=== PATIENT | male | born 1980 | race Hispanic/Latino ===

== ENCOUNTER 2020-07-03 12:48 | Emergency (ER) | payer OTHER ==
[~2020-07-03] VITALS: Ht 170.2 cm; Wt 111.1 kg
[2020-07-03] MEDS ORDERED: LYRICA150 MG PO (13:22)
[2020-07-03] MEDS ORDERED: BACLOFEN10 MG PO (13:22)
[2020-07-03] MEDS ORDERED: BACTRIM DS TAB1 EACH PO ×2 (13:22→16:22)
[2020-07-03] MEDS ORDERED: SODIUM CHLORIDE 0.9% 1000ML 1,000 ML IV STA (13:31)
[2020-07-03] MEDS ORDERED: ONDANSETRON HCL INJ 2MG/ML 2ML 2 MG/ML VIAL IV STA (13:31)
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
[2020-07-03] MEDS ORDERED: SODIUM CHLORIDE FLUSH 10 ML SYR INJ PRN (13:45)
[2020-07-03] MEDS ORDERED: MORPHINE SULFATE 5 MG/ML VIAL IV ONE (13:45)
[2020-07-03] MEDS ORDERED: SODIUM CHLORIDE 0.9% 50ML 50 ML ONE (13:49)
[2020-07-03] MEDS ORDERED: IOPAMIDOL 370 MG/ML 200 ML INFUS..BTL INJ ONE (13:50)
[2020-07-03] MEDS ORDERED: MORPHINE SULFATE INJ 4 MG/ML INJ 1ML ONE (13:51)
[2020-07-03] MEDS ORDERED: SODIUM CHLORIDE 0.9% 1000ML 1,000 ML ONE (13:51)
[2020-07-03] MEDS ORDERED: MORPHINE SULFATE INJ 4 MG/ML INJ 1ML IV ONE (14:00)
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
--- NOTE | 2020-07-03 14:47 | Diagnostic Imaging Report ---
CT BRAIN [facility] HISTORY: Headache COMPARISON: None. TECHNIQUE: Noncontrast axial scans were obtained from skull base to the vertex. Coronal and sagittal reconstructions obtained from the axial data. One or more of the following dose reduction techniques were used: Automated exposure control, adjustment of the mA and/or kV according to patient size, and/or utilization of iterative reconstruction technique. DISCUSSION: Scalp/Skull: Possible small posterior parietal scalp hematoma. No calvarial fracture. Brain sulci: Appropriate for patient's age. Ventricles: Normal in size and configuration. No hydrocephalus. Extra-axial spaces: No masses or fluid collections. Parenchyma: No abnormal densities. No mass, hemorrhage, or large vascular territory acute infarct. Dural sinuses: No abnormal densities. Sellar/Suprasellar region: Intact. Skull base: Intact. Incidental findings: None. IMPRESSION: No intracranial abnormalities. Signed by: Dr. Elijah Barkley M.D. on 07/03/2020 2:44 PM
--- NOTE | 2020-07-03 14:56 | Diagnostic Imaging Report ---
ADDENDUM #1 ADDENDUM: A well-circumscribed 2.4 cm likely pleural-based lesion at the left lung base is indeterminate. There are left basilar pleural hyperdensities, likely calcifications, which may be seen in the setting of prior asbestos exposure, or alternatively may represent postsurgical changes. Recommend follow-up nonemergent chest CT for further evaluation. The above findings were discussed with Dr. Nathanael Forde who indicated that the findings were understood on 07-03-2020 at 1505. Signed by: Dr. Jacob Quinonez MD on 07/03/2020 3:06 PM ORIGINAL REPORT EXAM: CT Abdomen and Pelvis WITH contrast INDICATION: Constipation. COMPARISON: None. TECHNIQUE: Abdomen and pelvis were scanned utilizing a multidetector helical scanner from the lung base to the pubic symphysis after administration of IV contrast. Coronal and sagittal reformations were obtained. Routine protocol was performed. Scan was performed when during portal venous phase. IV CONTRAST: 150 mL of Omnipaque 300 ORAL CONTRAST: Water COMPLICATIONS: None RADIATION DOSE: Total DLP: 793 mGy*cm Estimated effective dose: (DLP x 0.015 x size factor) mSv CTDIvol has been reviewed. It is below the limits set by the Radiation Protocol Committee (RPC). FINDINGS: LINES and TUBES: None. LOWER THORAX: There is a 2.4 cm well-circumscribed somewhat hyperdense likely pleural-based lesion in the left lower lung on series 2, image 12. Mild linear subsegmental atelectasis at the left lung base. HEPATOBILIARY: No evidence of focal lesion. No biliary ductal dilation. GALLBLADDER: No radio-opaque stones or sludge. No wall thickening. SPLEEN: No splenomegaly. PANCREAS: No focal masses or ductal dilatation. ADRENALS: No adrenal nodules KIDNEYS/URETERS: Kidneys enhance symmetrically. No evidence of hydronephrosis, solid mass, or stone. Mild right renal cortical scarring. GI TRACT: Moderate amount of stool in the colon. No evidence of wall thickening or distension. Appendix is normal. PELVIC ORGANS/BLADDER: The bladder is partially decompressed and appears circumferentially thick-walled with surrounding inflammatory changes. LYMPH NODES: No lymphadenopathy. VESSELS: Unremarkable. PERITONEUM / RETROPERITONEUM: No free air. Trace amount of free fluid in the pelvis. Peripherally calcified somewhat linear structure in the anterior abdominal fat may be postsurgical or posttraumatic. BONES AND SOFT TISSUES: Partially seen lower thoracic spine fixation hardware. CONCLUSION: Bladder wall thickening with surrounding inflammatory changes, compatible with cystitis in the proper clinical setting. Recommend correlation with urinalysis. Moderate amount of stool in the colon. Peripherally calcified somewhat linear structure in the anterior abdominal fat may be postsurgical or posttraumatic. Recommend clinical correlation. Signed by: Dr. Jacob Quinonez MD on 07/03/2020 2:53 PM
[2020-07-03] MEDS ORDERED: CEFTRIAXONE SOD 1 GM/NS 50 ML 50 ML IV ONE ×2 (16:17→17:15)
[2020-07-03] MEDS ORDERED: FLEET ENEMA133 ML PR (16:22)
[2020-07-03] MEDS ORDERED: PREDNISONE20 MG PO (16:22)
[2020-07-03] MEDS ORDERED: MAGNESIUM CITR296 ML PO (16:22)
[2020-07-03] MEDS ORDERED: CIPRO500 MG PO (16:49)
[2020-07-03 17:03] VITALS: BP 100/53
== END 2020-07-03 17:01 | disposition home or self-care (01) ==
LOC: FSED 12:48
DX: R51 Headache (principal); N30.90 Cystitis, unspecified without hematuria; K59.00 Constipation, unspecified; R10.84 Generalized abdominal pain; G82.20 Paraplegia, unspecified
CPT/HCPCS: 70450; 74177; 80053; 80076; 81003; 82553; 84484; 85025; 87086; 87186; 96374; 96375; 99284

== ENCOUNTER 2020-07-18 21:32 | Emergency (ER) | payer OTHER ==
[~2020-07-18] VITALS: Ht 170.2 cm; Wt 111.1 kg
[~2020-07-18 21:32] MED LIST: BACLOFEN10 MG PO; BACTRIM DS TAB1 EACH PO; CIPRO500 MG PO; FLEET ENEMA133 ML PR; LYRICA150 MG PO; MAGNESIUM CITR296 ML PO; PREDNISONE20 MG PO
[2020-07-18] MEDS ORDERED: MORPHINE SULFATE 2 MG/ML SYR 1ML IV STA (21:53)
[2020-07-18] MEDS ORDERED: ONDANSETRON HCL INJ 2MG/ML 2ML 2 MG/ML VIAL IV STA (21:53)
--- OUTSIDE RECORDS SUMMARY | 2020-07-18 22:03 | XMS REPORT | Continuity of Care Document ---
Author Author [facility] t Organization [facility] Address [address] [place] [address] Phone Unavailable Care Team Providers Care Rn Lab Name Role Phone NONSTAFF PCP Unavailable Keyla SMITH Attphys Unavailable Francisco Javier Tesfaye DO Attphys Payers Payer Name Policy Type Policy Number Effective Date Expiration Date [facility] [id number] 2019 00:00 :00 [facility] Problems Condition Name Condition Details Condition Category Status Onset Date Resolution Date Last Treatment Date Treating Clinician Comments Source Headache Problem Active [facility] Cystitis Problem Active [facility] Constipation Problem Active [facility] Allergies, Adverse Reactions, Alerts This patient has no known allergies or adverse reactions. Social History Social Habit Start Date Stop Date Quantity Comments Source Sex Assigned At 1980 00:00:00 1980 00:00:00 Male [facility] Medications Ordered Medication Name Filled Medication Name Start Date Stop Da te Current Medication? Ordering Clinician Indication Dosage Frequency Signature (SIG) Comments Components Source Ciprofloxacin Hcl (Cipro) 500 Mg TABLET Ciprofloxacin Hcl (C ipro) 500 Mg TABLET 2020-07-03 16:49:00 Yes 500 Every 12 Hours [facility] Magnesium Citrate Magnesium Citrate 2020-07-03 16:22:00 Yes 300 Daily as needed for Constipation [facility] Na Phos,M-B/Na Phos,Di-Ba (Fleet Enema) 133 Ml ENEMA N a Phos,M-B/Na Phos,Di-Ba (Fleet Enema) 133 Ml ENEMA 2020-07-03 16:22:00 Yes 1 32 Every 12 Hours as needed for Constipation [facility] Prednisone Prednisone 2020-07-03 16:22:00 Yes 60 Daily as needed for Moderate Pain (4-6) [facility] Sulfamethoxazole/Trimethoprim (Bactrim Ds Tablet) 1 Ea ch TABLET Sulfamethoxazole/Trimethoprim (Bactrim Ds Tablet) 1 Each TABLET 2020-07-03 16:22:00 Yes 1 Every 12 Hours [facility] Baclofen Baclofen Yes 20 Daily [facility] Pregabalin (Lyrica) 150 Mg CAPSULE Pregabalin (Lyrica) 150 Mg CAPSULE Yes 150 Twice A Day [facility] Sulfamethoxazole/Trimethoprim (Bactrim Ds Tablet) 1 Ea ch TABLET Sulfamethoxazole/Trimethoprim (Bactrim Ds Tablet) 1 Each TABLET Yes 1 Daily [facility] Vital Signs Vital Name Observation Time Observation Value Comments Source Weight 2020-07-03 12:57:00 245 [lb_av] [facility] BMI (Body Mass Index) 2020-07-03 12:57:00 38.4 kg/m2 [facility] Procedures This patient has no known procedures. Plan of Care Planned Activity Planned Date Details Comments Source Instructions Constipation - Adult [facility] Instructions Dehydration - Adult [facility] Instructions Headache [facility] Instructions Urinary Tract Infection - Men [facility] Encounters Start Date/Time End Date/Time Encounter Type Admission Type [facility] Facility Care Department Encounter ID Source 2020-07-03 12:48:00 2020-07-03 17:01:00 Departed Emergency Room 1 NATHANAEL SMITH [facility] [id number] [facility] 2020-06-11 10:39:53 2020-06-11 10:59:53 Office Visit Jean Claude Lowery [facility] [id number] Results Test Description Test Time Test Comments Results Result Comments Source CT ABD/PEL WITH CONTRAST-HOPD 2020-07-03 14:46:[address] [address] Patient Name: TOMA SALDANA MR #: [id number] : 1980 Age/Sex: 40/M Req #: [id number] Adm Physician: Ordered by: NATHANAEL SMITH Report #: [id number] Location: [facility] Room/Bed: Procedure: [id number] HOPD/CT ABD/PEL WITH CONTRAST-HOPD Exam Date: Exam Time: REPORT STATUS: Signed ADDENDUM #1 ADDENDUM: A well-circumscribed 2.4 cm likely pleural-based lesion at the left lung base is indeterminate. There are left basilar pleural hyperdensities, likely calcifications, which may be seen in the setting of prior asbestos exposure, or alternatively may represent postsurgical changes. Recommend follow-up nonemergent chest CT for further evaluation. The above findings were discussed with Dr. Nathanael Smith who indicated that the findings were understood on 07-03-2020 at 1505. Signed by: Dr. Jameel Wilson MD on 07/03/2020 3:06 PM ORIGINAL REPORT EXAM: CT Abdomen and Pelvis WITH contrast INDICATION: Constipation. COMPARISON: None. TECHNIQUE: Abdomen and pelvis were scanned utilizing a multidetector helical scanner from the lung base to the pubic symphysis after administration of IV contrast. Coronal and sagittal reformations were obtained. Routine protocol was performed. Scan was performed when during portal venous phase. IV CONTRAST: 150 mL of Omnipaque 300 ORAL CONTRAST: Water COMPLICATIONS: None RADIATION DOSE: Total DLP: 793 mGy*cm Estimated effective dose: (DLP x 0.015 x size factor) mSv CTDIvol has been reviewed. It is below the limits set by the Radiation Protocol Committee (RPC). FINDINGS: LINES and TUBES: None. LOWER THORAX: There is a 2.4 cm well-circumscribed somewhat hyperdense likely pleural-based lesion in the left lower lung on series 2, image 12. Mild linear subsegmental atelectasis at the left lung base. HEPATOBILIARY: No evidence of focal lesion. No biliary ductal dilation. GALLBLADDER: No radio-opaque stones or sludge. No wall thickening. SPLEEN: No splenomegaly. PANCREAS: No focal masses or ductal dilatation. ADRENALS: No adrenal nodules KIDNEYS/URETERS: Kidneys enhance symmetrically. No evidence of hydronephrosis, solid mass, or stone. Mild right renal cortical scarring. GI TRACT: Moderate amount of stool in the colon. No evidence of wall thickening or distension. Appendix is normal. PELVIC ORGANS/BLADDER: The bladder is partially decompressed and appears circumferentially thick-walled with surrou nding inflammatory changes. LYMPH NODES: No lymphadenopathy. VESSELS: Unremarkable. PERITONEUM / RETROPERITONEUM: No free air. Trace amount of free fluid in the pelvis. Peripherally calcified somewhat linear structure in the anterior abdominal fat may be postsurgical or posttraumatic. BONES AND SOFT TISSUES: Partially seen lower thoracic spine fixation hardware. CONCLUSION: Bladder wall thickening with surrounding inflammatory changes, compatible with cystitis in the proper clinical setting. Recommend correlation with urinalysis. Moderate amount of stool in the colon. Peripherally calcified somewhat linear structure in the anterior abdominal fat may be postsurgical or posttraumatic. Recommend clinical correlation. Signed by: Dr. Jameel Wilson MD on 07/03/2020 2:53 PM Dictated By: JAMEEL WILSON MD [id number] Transcribed By: ERICA on 07/03/20 6022 COPY TO: NATHANAEL SMITH CT BRAIN -HOP 2020-07-03 14:41:[address] [address] Patient Name: TOMA SALDANA MR #: [id number] : 1980 Age/Sex: 40/M Req #: [id number] [facility] Physician: Ordered by: NATHANAEL SMITH Report #: [id number] Location: [facility] Room/Bed: Procedure: [id number] HOPD/CT BRAIN WO-HOPD Exam Date: Exam Time: REPORT STATUS: Signed CT BRAIN WO-HOPD HISTORY: Headache COMPARISON: None. TECHNIQUE: Noncontrast axial scans were obtained from skull base to the vertex. Coronal and sagittal reconstructions obtained from the axial data. One or more of the following dose reduction techniques were used: Automated exposure control, adjustment of the mA and/or kV according to patient size, and/or utilization of iterative reconstruction technique. DISCUSSION: Scalp/Skull: Possible small posterior parietal scalp hematoma. No calvarial fracture. Brain sulci: Appropriate for patient's age. Ventricles: Normal in size and configuration. No hydrocephalus. Extra-axial spaces: No masses or fluid collections. Parenchyma: No abnormal densities. No mass, hemorrhage, or large vascular territory acute infarct. Dural sinuses: No abnormal densities. Sellar/Suprasellar region: Intact. Skull base: Intact. Incidental findings: None. IMPRESSION: No intracranial abnormalities. Signed by: Dr. Elijah Barkley M.D. on 07/03/2020 2:44 PM Dictated By: ELIJAH BARKLEY MD 43 Transcribed By: ERICA on 07/03/201443 COPY TO: NATHANAEL SMITH
[2020-07-18] MEDS ORDERED: MORPHINE SULFATE INJ 4 MG/ML INJ 1ML ONE (22:18)
[2020-07-18] MEDS ORDERED: ONDANSETRON HCL INJ 2MG/ML 2ML 2 MG/ML VIAL ONE (22:18)
--- NOTE | 2020-07-18 23:21 | Diagnostic Imaging Report ---
EXAM: CT Abdomen and Pelvis WITHOUT contrast INDICATION: ^PAIN ^[id number] ^[id number] COMPARISON: CT dated 07/03/2020 TECHNIQUE: Abdomen and pelvis were scanned utilizing a multidetector helical scanner from the lung base to the pubic symphysis without administration of IV contrast. Absence of intravenous contrast decreases sensitivity for detection of focal lesions and vascular pathology. Coronal and sagittal reformations were obtained. Routine protocol was performed. IV CONTRAST: None ORAL CONTRAST: None COMPLICATIONS: None RADIATION DOSE: Total DLP: 939.18 mGy*cm Estimated effective dose: (DLP x 0.015 x size factor) mSv CTDIvol has been reviewed. It is below the limits set by the Radiation Protocol Committee (RPC). FINDINGS: LINES and TUBES: None. LOWER THORAX: Unchanged left basilar scarring as well as 2.3 cm pleural-based lesion, which could represent a nodule or round atelectasis. Again seen left lower lobe calcified pleural plaques. HEPATOBILIARY: Unenhanced liver is unremarkable. No biliary ductal dilation. GALLBLADDER: No radio-opaque stones or sludge. No wall thickening. SPLEEN: No splenomegaly. PANCREAS: No focal masses or ductal dilatation. ADRENALS: No adrenal nodules KIDNEYS/URETERS: No hydronephrosis. Limited for evaluation of renal parenchyma without intravenous contrast. No stones. GI TRACT: No abnormal distention, wall thickening, or evidence of bowel obstruction. Appendix is normal. PELVIC ORGANS/BLADDER: Unremarkable. LYMPH NODES: No lymphadenopathy. VESSELS: Unremarkable. PERITONEUM / RETROPERITONEUM: No free air or fluid. BONES: Partially seen thoracic spine fixating hardware. Degenerative changes of right hip with superior right acetabular sclerotic focus, likely a bone island. Anterior abdominal calcified linear lesion is again seen, unchanged. SOFT TISSUES: Unremarkable. IMPRESSION: 1. No nephrolithiasis or evidence of obstructive urolithiasis. 2. Persistent changes of left lower lobe, probably related to asbestos exposure. Unchanged 2.3 cm round density which could represent a nodule or round atelectasis. Right atelectasis is favored. Recommend follow-up chest CT in 3 months to ensure stability or further evaluation with PET/CT. Signed by: Dr. Jeffery Ruffin MD on 07/18/2020 11:18 PM
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
== END 2020-07-18 23:45 | disposition home or self-care (01) ==
LOC: FSED 22:00
DX: M54.5 Low back pain (principal); K59.00 Constipation, unspecified; R10.9 Unspecified abdominal pain; G82.20 Paraplegia, unspecified
CPT/HCPCS: 74176; 80053; 81003; 85025; 99284; J2270; J2405